=== PATIENT | female | born 1955 | race Caucasian/White ===

== ENCOUNTER 2017-04-08 09:11 | Emergency (ER) | payer BC, OTHER ==
[~2017-04-08] VITALS: Ht 154.9 cm; Wt 90.0 kg
[2017-04-08 09:13] VITALS: Ht 154.9 cm; Wt 90.0 kg
--- NOTE | 2017-04-08 09:45 | ERD ---
ER Documentation Chief Complaint Chief Complaint pt bib family with c/o hypertension , not controlled by meds , HPI Patient is a 61-year-old female with hypertension and diabetes who presents with high blood pressure. The patient said that her blood pressure over the past week has been as high as 197. She feels nervous about her blood pressure. She has no chest pain or shortness of breath. She has had no weakness. Upon review of old medical records this is the patient's third visit to the ER since 2007. Her primary doctor is Dr. Calvillo and she has an appointment scheduled for tomorrow. ROS All systems reviewed and are negative except as per history of present illness. Allergies Allergies: Coded Allergies: No Known Allergy (Verified Allergy, Mild, 12/28/07) PMhx/Soc History of Surgery: Yes (hysterectomy- 3 years ago) Anesthesia Reaction: No Hx Neurological Disorder: No Hx Respiratory Disorders: No Hx Cardiac Disorders: No Hx Psychiatric Problems: No Hx Miscellaneous Medical Probl: Yes (dm,hypothyroidism) Hx Alcohol Use: No Hx Substance Use: No Hx Tobacco Use: No Smoking Status: Never smoker FmHx Family History: No diabetes Physical Exam Vitals Vital Signs Date Time Temp Pulse Resp B/P Pulse Ox O2 Delivery O2 Flow Rate FiO2 04/08/17 10:29 98.5 85 20 140/85 98 Room Air 04/08/17 09:13 98.6 104 18 216/104 97 Physical Exam Const: No acute distress Head: Atraumatic Eyes: Normal Conjunctiva ENT: Normal External Ears, Nose and Mouth. Neck: Full range of motion..~ No meningismus. Resp: Clear to auscultation bilaterally Cardio: Regular rate and rhythm, no murmurs Abd: Soft, non tender, non distended. Normal bowel sounds Skin: No petechiae or rashes Back: No midline or flank tenderness Ext: No cyanosis, or edema Neur: Awake and alert, cranial nerves II through XII are intact, strength is 5 out of 5 in all 4 extremities, no slurred speech Psych: Normal Mood and Affect Results 24 hrs Current Medications Medications (Trade) Dose Ordered Sig/Anjali Route PRN Reason Start Time Stop Time Status Last Admin Dose Admin Nicardipine HCl (Cardene) 30 mg ONCE ONCE PO 04/08/17 10:00 04/08/17 10:01 DC 11/16/17 09:38 Procedures/MDM EKG read by me: Rate/Rhythm: Regular rate and rhythm at a rate of 87 Intervals: Normal Impression: No evidence of ischemia or arrhythmia Patient is a 61-year-old female who presents with high blood pressure. She has acute on chronic hypertension. At this time I doubt acute coronary syndrome, acute stroke, or pheochromocytoma. I believe patient likely has essential hypertension. She was given Cardene by mouth and will be discharged. She can return for any worsening symptoms. The patient understands the plan and is okay for discharge at this time. She should follow-up with Dr. Calvillo at her appointment tomorrow. Departure Diagnosis: Primary Impression: Hypertension Hypertension type: essential hypertension Qualified Code: I10 - Essential hypertension Condition: Fair Patient Instructions: High Blood Pressure (Hypertension) Referrals: BARBARA CALVILLO MD Additional Instructions: Keep the appointment scheduled with Dr. Calvillo tomorrow. JEMIMA CLEMONS MD Apr 08, 2017 09:45
[2017-04-08] MEDS ORDERED: NICARDipine HCL 30 MG CAPSULE PO ONE (10:00)
[2017-04-08 10:29] VITALS: BP 140/85; PULSE 85; RESP 20; TEMP 98.5
== END 2017-04-08 10:54 | disposition home or self-care (01) ==
LOC: E/R 09:11
DX: I10 Essential (primary) hypertension (principal); E11.9 Type 2 diabetes mellitus without complications; E03.9 Hypothyroidism, unspecified